=== PATIENT | female | born 1965 | race Caucasian/White ===

== ENCOUNTER 2021-11-06 07:26 | Emergency (ER) | payer BC, MEDICAID ==
[~2021-11-06] VITALS: Ht 160 cm; Wt 54.4 kg
--- NOTE | 2021-11-06 07:26 | NUR ---
SULTANA OCHOA FROM HOME TAKEN TO ER BED 4.
--- NOTE | 2021-11-06 07:26 | NUR ---
56 Y/O F BIBA FOR [facility] BG 71 IN FIELD, RECHECK BG 100 AT BEDSIDE HX RIGHT BKA, DM, HTN NKDA
[2021-11-06 07:37] VITALS: BP 112/36
[2021-11-06] MEDS ORDERED: VANCOMYCIN 1,000 MG in DEXTROSE 5% 250 ML IV ONE (07:55)
[2021-11-06] MEDS ORDERED: DEXT 5% /NACL 0.9% 1,000 ML IV ONE (08:00)
--- NOTE | 2021-11-06 08:04 | NUR ---
SISTER VILMA SHANE WOULD LIKE TO BE LISTED NEXT OF KIN PT NO LONGER LIVES WITH BRITTNY.
--- NOTE | 2021-11-06 08:15 | NUR ---
blood work walked down to lab
[2021-11-06] MEDS ORDERED: VANCOMYCIN 1,000 MG VIAL ONE (08:25)
[2021-11-06 09:06] LABS: BASOPHILS # (AUTO) 0.1 K/uL (0.00-0.22); BASOPHILS % (AUTO) 0.5 % (0.0-2.0); EOSINOPHILS # (AUTO) 0.1 K/uL (0-0.4); EOSINOPHILS % (AUTO) 0.9 % (0.0-4.0); HEMATOCRIT 24.9 % (36-48); HEMOGLOBIN 8.2 g/dL (12.0-16.0); LYMPHOCYTES # (AUTO) 1.4 K/uL (2.5-16.5); LYMPHOCYTES % (AUTO) 13.4 % (20.5-51.1); MEAN CORPUSCULAR HEMOGLOBIN 26 pg (27-31); MEAN CORPUSCULAR HGB CONC 33 g/dL (33-37); MONOCYTES # (AUTO) 0.4 K/uL (0.8-1.0); MONOCYTES % (AUTO) 3.7 % (1.7-9.3); NEUTROPHILS # (AUTO) 8.7 K/uL (1.8-7.7); NEUTROPHILS % (AUTO) 81.5 % (42.2-75.2); PLATELET COUNT (AUTO) 670 K/uL (140-450); RED BLOOD CELL COUNT(AUTO) 3.11 MIL/uL (4.20-5.40); RED CELL DISTRIBUTION WIDTH 14.4 % (11.6-13.7); WHITE BLOOD COUNT (AUTO) 10.7 K/uL (4.8-10.8)
[2021-11-06 09:17] LABS: ALBUMIN 2.5 g/dL (3.4-5.0); ANION GAP 17.4 (8-16); CARBON DIOXIDE 24.2 mmol/L (21-32); CREATININE 1.6 mg/dL (0.6-1.3); POTASSIUM 4.6 mmol/L (3.5-5.1); TOTAL BILIRUBIN 0.3 mg/dL (0.0-1.0)
[2021-11-06] MEDS ORDERED: PIPERACILLIN/TAZOBACTAM 2.25 GM in DEXTROSE 5% 50 ML IV ONE (09:35)
--- NOTE | 2021-11-06 09:50 | NUR ---
walked manan down to lab, gave to medical lab director Ngozi
[2021-11-06] MEDS ORDERED: PIPERACILLIN/TAZOBACTAM 2.25 GM VIAL IV ONE (09:53)
[2021-11-06 10:01] LABS: PROTHROMBIN TIME 9.7 secs (10.8-13.4)
--- NOTE | 2021-11-06 11:27 | NUR ---
SPOKE WITH PT SISTER FOR UPDATES.
[2021-11-06 11:53] LABS: APPEARANCE,URINE SL CLOUDY (CLEAR); BILIRUBIN,URINE NEGATIVE (NEGATIVE); BLOOD, URINE 3+ (NEGATIVE); COLOR,URINE BROWN (YELLOW); LEUKOCYTE ESTERASE ,URINE 3+ (NEGATIVE); NITRITE, URINE NEGATIVE (NEGATIVE); PH,URINE 5.5 (5.0-9.0); UGLUCOSE NEGATIVE (NEGATIVE)
[2021-11-06 12:19] LABS: WBC,URINE >25 (MANY) /HPF (0-5)
[2021-11-06 14:53] VITALS: BP 97/43
--- NOTE | 2021-11-06 14:56 | NUR ---
Patient to be transferred to [facility]. Is being transferred due to insurance rtequest. Receiving facility has accepting physician and available space. ER physician has signed transfer form. Patient or responsible constitution party has agreed to transfer and signed form. Patient belongings inventoried and will be sent with patient. Copy of nursing notes, lab reports, EKG, Physicians Orders and X-rays to be sent with patient. Report called to CRISTOFER Ramirez at receiving facility. [facility] ambulance service has been called for transfer. ETA is 45 minutes.
--- NOTE | 2021-11-08 12:58 | NUR ---
LATE ENTRY- VANCOMYCIN IV DISCONTINUED AT 1456.
--- NOTE | 2021-11-08 13:27 | NUR ---
LATE ENTRY- IV DEXTROSE/NS DISCONTINUED AT 1456.
--- NOTE | 2021-11-08 18:55 | NUR ---
LATE ENTRY---Urine culture results received from lab. Results shown to Dr. MORRIS. PT TRANSFERRED TO [facility], RESULTS FAXED. Copy placed in C&S folder.
--- NOTE | 2021-11-10 15:31 | NUR ---
LATE ENTRY---blood culture results received from lab. Results shown to Dr. MORRIS. PT TRANSFERRED TO [facility], RESULTS FAXED. Copy placed in C&S folder.
== END 2021-11-06 14:54 | disposition short-term general hospital (02) ==
LOC: MED 07:26
DX: A41.9 Sepsis, unspecified organism (principal); Z20.822 Contact with and (suspected) exposure to COVID-19; E11.52 Type 2 diabetes mellitus with diabetic peripheral angiopathy with gangrene; I96 Gangrene, not elsewhere classified; N17.9 Acute kidney failure, unspecified; G93.41 Metabolic encephalopathy; R53.1 Weakness; R41.82 Altered mental status, unspecified; I10 Essential (primary) hypertension; Z89.432 Acquired absence of left foot
CPT/HCPCS: 36415; 71045; 73590; 73620; 80053; 81001; 82550; 83605; 84484; 85025; 85610; 85651; 85730; 86140; 87040; 87086; 87186; 87426; 93005; 93925; 96365; 96366; 96368; 99291; J2543; J3370; Q0092